=== PATIENT | female | born 1950 | race Caucasian/White ===

== ENCOUNTER 2024-04-10 11:55 | Emergency (ER) | payer MEDICARE, BC, SELFPAY ==
[2024-04-10 11:57] VITALS: BP 125/106
--- NOTE | 2024-04-10 12:42 | ED.GENMED ---
History of Present Illness
General
Chief Complaint: Swelling
Source: patient and spouse
Time Seen by Provider: 04/10/24 12:09
History of Present Illness
History of Present Illness:
73-year-old female presents emergency department complaints of lower extremity edema that started approximately 2 days ago. The edema is symmetrical, and gradual in onset. She denies recent immobilization or trauma. She incidentally states that
she was clinically diagnosed with diverticulitis and just completed a 10-day course of antibiotics because the left lower quadrant was 'sore'. This is improved. She describes somewhat subacute abdominal distention for the last year or so as well
as a chronic cough. She denies dyspnea, fever, chills, nausea, vomiting, anorexia. She did have a loose bowel movement yesterday without black stool or blood. She denies numbness, tingling, focal weakness, chest pain. She is urinating as usual.
Past History
Past History
ED Past Medical History: COPD, Hypothyroidism and Other (Diverticulitis)
ED Past Surgical History: Gynecological (Hysterectomy) and Tonsilectomy
Social History
Tobacco: Former smoker
Alcohol: None
Personal:
Living: with family
Phy Exam
Physical Exam
Physical Exam:
GENERAL: Alert , in no apparent distress
EYE: pupils equal and reactive
NECK: Supple, no significant adenopathy.
ENT: o/p clr, mmm.
CARDIAC: Regular rate and rhythm .
LUNGS: Clear breath sounds bilaterally, no acute respiratory distress, no wheezes/rales/rhonchi
ABDOMEN: Soft, without focal tenderness, no r/g, no cvat, distended
NEUROLOGICAL: Alert and oriented, no focal neuro deficits
SKIN: Warm and dry, skin intact.
MUSCULOSKELETAL: 1+ bilateral lower extremity edema, well perfused.
PSYCH: Normal and appropriate interaction although somewhat anxious.
Scores
Heart Failure Risk
Heart Failure Risk Score: Not Applicable
Course
Orders/Labs/Results
Orders:
Orders
04/10/24 12:42
US Abdomen Complete/Upper Urgent
Comment:
Reason For Exam: distention, pain
04/10/24 13:06
Complete Blood Count/No Diff Urgent
Comprehensive Metabolic Panel Urgent
NT-proBNP Urgent
Troponin I Urgent
04/10/24 13:54
US Periph Venous LOWER Ext Claus Urgent
Comment:
Reason For Exam: edema
Abnormal Lab Results
04/10/24
13:06
RBC 3.76 L 10^6/uL
(4.20-5.40)
Hct 36.5 L %
(37.0-47.0)
MCH 34.3 H pg
(27.0-31.0)
Glucose 110 H mg/dl
(70-99)
04/10/24 13:06
04/10/24 13:06
Vital Signs
Initial and Last Documented VS:
Initial Vital Signs
Temp Pulse Resp BP Pulse Ox
98.4 F 89 19 125/106 93
04/10/24 11:57 04/10/24 11:57 04/10/24 11:57 04/10/24 11:57 04/10/24 11:57
Last Documented Vital Signs
Temp Pulse Resp BP Pulse Ox
98.4 F 84 18 121/86 94
04/10/24 11:57 04/10/24 13:32 04/10/24 13:32 04/10/24 13:32 04/10/24 13:32
*Critical Care Note
Total Time (30-74mins, 75-104mins- exclusive of procedures): Not Applicable
Update Note
Update Note:
Patient presents to the Emergency Department with leg swelling
Number and Complexity of Problems Addressed at the Encounter
� Chronic conditions affecting care:
� Acute Exacerbation and/or Progression of Chronic Illness:
� Differential Diagnosis includes: But not limited to venous insufficiency, heart failure, renal disease, etc. etc.
Amount and/or Complexity of Data to be Reviewed and Analyzed
� I performed an independent evaluation of and my interpretation is:
EKG:
CT:
Xrays:
Laboratory Studies: Unremarkable
Other: Ultrasound bilateral legs and ultrasound of the abdomen generally unremarkable
� Review of other/old records reveals:
� Clinical information was obtained by an independent historian: who is bedside
� Prescriptions/Medications Considered but not given:
� Further testing considered but not performed:
Risk of Complications and/or Morbidity or Mortality of Patient Management
� Social determinants of health affecting care:
� Discussion with other providers (PCP, Hospitalists, Consultants, etc):
� Escalation of care including admission/observation vs risk of discharge considered: 3:35 PM patient is extremely well-appearing, walks about room without difficulty, no chest pain, no shortness of breath. Preliminary workup
here unrevealing regarding etiology of bilateral lower extremity edema which is dependent. Discussed with patient importance of close follow-up, elevation, compression stockings, and reasons return to the emergency department. Patient is on
amlodipine but has been for some time, would be a potential reason for her swelling although unlikely. Patient given copy of ultrasound as well.
ED Attending Note
-
Portions of this chart may have been created with voice recognition software.� Occasional wrong word or��sound alike� substitutions may have occurred due to the inherent limitations of voice recognition software.
Discharge Plan
Departure
Patient Disposition: Home (Routine Discharge)
Date of Disposition: 04/10/24
Time of Disposition: 15:33
Patient with high blood pressure during this ER visit?: Yes
Condition: Good
Discharge Problem:
Edema
Instructions: Dependent Edema (DC), BLOOD PRESSURE
Prescriptions:
No Action
zinc 15 MG tablet
15 mg PO DAILY
famotidine 20 MG tablet
20 mg PO HS
ascorbic acid (vitamin C) [Vitamin C] 500 MG tablet
500 mg PO DAILY
levothyroxine 125 MCG tablet
125 mcg PO DAILY
Bifidobacterium infantis [Align] 4 MG capsule
4 mg PO DAILY
cholecalciferol (vitamin D3) 2,000 UNITS tablet
2,000 units PO DAILY
ccqabofasoe-pvwluszya-mcgohhtc [Trelegy Ellipta] 1 EACH blister with device
1 puff inhalation R DAILY
atorvastatin 40 MG tablet
40 mg PO QPM 30 Days Qty: 30 3RF
clopidogrel 75 MG tablet
75 mg PO DAILY 19 Days Qty: 19 0RF
amlodipine 5 MG tablet
5 mg PO DAILY 30 Days Qty: 30 3RF
aspirin 81 MG tablet,chewable
81 mg PO DAILY 30 Days Qty: 30 3RF
melatonin 5 MG tablet
5 mg PO HSPRN PRN (Reason: sleep) 30 Days Qty: 30 0RF
cyanocobalamin (vitamin B-12) 1,000 MCG tablet
1,000 mcg PO DAILY 30 Days Qty: 30 0RF
Referrals:
Ángel Armstrong DO [Family Provider] - Tomorrow
Activity Restrictions/Additional Instructions:
PLEASE KEEP YOUR FEET ELEVATED IS MUCH POSSIBLE. WEAR COMPRESSION STOCKINGS. SEE YOUR DOCTOR PROMPTLY FOR FURTHER EVALUATION. IF YOU DEVELOP INCREASING SWELLING, REDNESS, FEVER, NUMBNESS, CHEST PAIN, SHORTNESS OF BREATH, OR OTHER WORRISOME
SIGNS, PLEASE RETURN TO THE ER IMMEDIATELY.
Interventions
Interventions:
*Risk Screen - Suicide Last Done: 04/10/24 11:57
*General Assessment Last Done: 04/10/24 11:57
*Neglect/Abuse Screening Last Done: 04/10/24 11:57
ED- Fall Risk Assessment Last Done: 04/10/24 12:04
ED- Cardiac Assessment Last Done: 04/10/24 12:04
ED- Pulmonary Assessment Last Done: 04/10/24 12:04
ED-Skin Assessment Last Done: 04/10/24 12:04
Discharge Date and Time
Print Language: IRISH
[2024-04-10 13:27] LABS: Hematocrit 36.5 % (37.0-47.0); Hemoglobin 12.9 g/dL (12.0-16.0); Mean Corp Hgb Conc. 35.3 g/dL (33.0-37.0); Mean Corpuscular Hgb 34.3 pg (27.0-31.0); Mean Corpuscular Volume 97.1 fL (81.0-99.0); Mean Platelet Volume 10.4 fL (7.4-10.4); Platelet Count 334 10^3/uL (130-400); Red Blood Cell Count 3.76 10^6/uL (4.20-5.40); Red Cell Dist. Width 14.2 % (11.5-14.5); White Blood Cell Count 9.6 10^3/uL (4.8-10.8)
[2024-04-10 13:32] VITALS: BP 121/86
[2024-04-10 13:37] LABS: ALT (SGPT) 17 U/L (0-35); AST (SGOT) 24 U/L (14-36); Albumin 4.2 g/dl (3.5-5.0); Alkaline Phosphatase 100 U/L (38-126); Blood Urea Nitrogen 8 mg/dl (7-17); Calcium 9.3 mg/dl (8.4-10.2); Carbon Dioxide 26 mmol/L (22-30); Chloride 106 mmol/L (98-107); Glucose 110 mg/dl (70-99); Potassium 3.9 mmol/L (3.5-5.1); Sodium 142 mmol/L (135-145); Total Bilirubin 0.6 mg/dl (0.2-1.3); Total Protein 6.5 g/dl (6.3-8.2); eGFR > 60.00
[2024-04-10 13:47] LABS: NT-proBNP 76.4 pg/ml; Troponin I < 0.012 ng/ml
[2024-04-10 15:48] VITALS: BP 142/86
== END 2024-04-10 16:03 | disposition home or self-care (01) ==
LOC: EMR 11:55
PROVIDERS: EMERGENCY PHYSICIAN Emergency Medicine; FAMILY PHYSICIAN Family Medicine
DX: R60.0 Localized edema (principal); R14.0 Abdominal distension (gaseous); R03.0 Elevated blood-pressure reading, without diagnosis of hypertension; J44.9 Chronic obstructive pulmonary disease, unspecified; R05.3 Chronic cough; E03.9 Hypothyroidism, unspecified; K57.92 Diverticulitis of intestine, part unspecified, without perforation or abscess without bleeding; Z87.891 Personal history of nicotine dependence; Z79.899 Other long term (current) drug therapy; Z79.82 Long term (current) use of aspirin; Z88.1 Allergy status to other antibiotic agents
CPT/HCPCS: 99284; 76700; 80053; 83880; 84484; 85027; 93970

== ENCOUNTER 2024-06-19 13:49 | Emergency (ER) | payer MEDICARE, BC, SELFPAY ==
[2024-06-19 14:03] VITALS: BP 101/69
[2024-06-19 15:08] VITALS: BMI 31.6
--- NOTE | 2024-06-19 15:26 | ED.GENMED ---
History of Present Illness
General
Chief Complaint: Rectal Bleeding
Source: patient
Time Seen by Provider: 06/19/24 15:07
History of Present Illness
History of Present Illness:
73-year-old female with past medical history of diverticulitis, COPD, hypothyroidism presenting to the emergency department for evaluation of maroon-colored stool that started last night and again this morning, currently being treated by her primary
care provider for diverticulitis since this past Saturday for which she is taking ciprofloxacin. Patient denies any fevers, chills, rigors, nausea, vomiting. She does note some abdominal discomfort mainly on the left side of her abdomen but
states she is also having some discomfort around the rectal area that moves towards the vaginal area as well. Patient follows with Dr. Cunningham from GI. Denies any history of similar GI bleeding. Denies anticoagulants. Patient notes she does use
occasional NSAIDs but does not use these very frequently. She does have a glass of wine nightly.
Past History
Past History
ED Past Medical History: COPD, Hypothyroidism and Other (Diverticulitis)
ED Past Surgical History: Gynecological (Hysterectomy) and Tonsilectomy
Social History
Tobacco: Former smoker
Alcohol: None
Drug: None
Personal:
Living: with family
Review of Systems
Review of Systems
All Other Systems: ROS reviewed and negative except as documented in HPI and ROS
Phy Exam
Physical Exam
Physical Exam:
GENERAL: Alert , in no apparent distress
EYE: clear conjunctiva
NECK: Supple
ENT: mmm.
CARDIAC: Regular rate and rhythm .
LUNGS: Clear breath sounds bilaterally, no acute respiratory distress, no wheezes/rales/rhonchi
ABDOMEN: Soft, mild ttp LLQ, no r/g, no cvat
RECTAL EXAM: no stool within rectum, no external/internal hemorrhoid appreciated. Exam chapperoned by ED ELYSE Curtis
PELVIC EXAM: no rashes/erythema/discharge
NEUROLOGICAL: Alert and oriented
SKIN: Warm and dry, skin intact.
MUSCULOSKELETAL: well perfused.
PSYCH: Normal and appropriate interaction.
Scores
Heart Failure Risk
Heart Failure Risk Score: Not Applicable
Heart Score for Chest Pain Patients
STEMI patient?: Not applicable
Withdrawal Assessment of Alcohol
Withdrawal Assessment Completed?: Not applicable
Course
Orders/Labs/Results
Orders:
Orders
06/19/24 15:27
Complete Blood Count/With Diff Urgent
Comprehensive Metabolic Panel Urgent
PTT Urgent
Prothrombin Time Urgent
06/19/24 16:05
ABO2 Urgent
BBK Wristband Number:
Associate notified that ABO2 has been ordered: [id number]
Date: 06/19/24
Time: 15:58
Rn Hyperbaric ID: [id number]
Abnormal Lab Results
06/19/24
15:27
RBC 3.78 L 10^6/uL
(4.20-5.40)
Hct 36.0 L %
(37.0-47.0)
MCH 33.3 H pg
(27.0-31.0)
MPV 10.8 H fL
(7.4-10.4)
Absolute Monos (auto) 0.9 H 10^3/uL
(0.1-0.6)
Lymphocytes % 16.6 L %
(20.5-51.1)
Monocytes % 9.5 H %
(1.7-9.3)
BUN 18 H mg/dl
(7-17)
Glucose 119 H mg/dl
(70-99)
06/19/24 15:27
06/19/24 15:27
Vital Signs
Initial and Last Documented VS:
Initial Vital Signs
Temp Pulse Resp BP Pulse Ox
98.3 F 89 16 101/69 93
06/19/24 14:03 06/19/24 14:03 06/19/24 14:03 06/19/24 14:03 06/19/24 14:03
Last Documented Vital Signs
Temp Pulse Resp BP Pulse Ox
98.3 F 79 18 134/67 94
06/19/24 14:03 06/19/24 16:30 06/19/24 16:30 06/19/24 16:00 06/19/24 16:30
Silverware Etcher consulted with Physician
Silverware Etcher consulted with physician?: Yes
Name of Physician Consulted: Kyrie
MDM/Problems Addressed
Differential Diagnosis Includes:
diverticular bleed, UGI bleed, hemorrhoidal bleeding, gastritis, anemia
MDM/Problems Addressed:
73-year-old female presenting to the emergency department for evaluation of 2 separate episodes of burgundy/maroon-colored stool, 1 last night and 1 this morning. Patient with some mild lower abdominal discomfort is currently being treated for
diverticulitis. Patient denies any history of previous GI bleeding. Blood pressure is a little bit soft however she is otherwise hemodynamically stable and well-appearing. Will check labs. Holding on imaging at this point as patient notes that
she has had multiple CAT scans already done of her abdomen for diverticulitis in the past. I do anticipate patient may require admission for observation and trending of her hemoglobin.
Chronic conditions affecting care: Other (Diverticulitis)
*Pulse Oximetry
Patient hypoxic: no
*Critical Care Note
Total Time (30-74mins, 75-104mins- exclusive of procedures): Not Applicable
Data Reviewed
Review of Other/Old Records Reveals: Labs and Records
Source: patient and spouse
Patient Management
Discussion with other providers: Manager Payer
Escalation/DeEscalation of care consider admission/obs:
Patient's labs are all reassuring. She has no leukocytosis, hemoglobin of 12.6 and chemistry is otherwise unremarkable. Patient without any further bleeding while in the ER. Discussed risk versus benefit of inpatient admission and patient
ultimately feels comfortable being discharged home with close outpatient follow-up. I messaged GI to help expedite an outpatient visit. Will start patient on PPI and also provided with Anusol suppository for possible hemorrhoidal bleeding.
Advised on cessation of any EtOH and recommended bland diet. Patient and spouse are in agreement. Both are aware of the return precautions to the ER. Stable for discharge home
ED Attending Note
-
Portions of this chart may have been created with voice recognition software.� Occasional wrong word or��sound alike� substitutions may have occurred due to the inherent limitations of voice recognition software.
Discharge Plan
Departure
Patient Disposition: Home (Routine Discharge)
Date of Disposition: 06/19/24
Time of Disposition: 16:24
Patient with high blood pressure during this ER visit?: No
Discharge Problem:
Rectal bleeding
Instructions: Gastrointestinal Bleeding (DC)
Prescriptions:
New
omeprazole 40 mg capsule,delayed release(DR/EC)
40 mg PO DAILY Qty: 30 0RF
hydrocortisone acetate [Anusol-HC] 25 mg suppository
25 mg OR BID Qty: 24 0RF
No Action
losartan 50 mg Tablet
50 mg PO DAILY
levothyroxine 137 mcg Tablet
137 mcg PO DAILY
metronidazole 500 mg Tablet
500 mg PO TID
ciprofloxacin HCl 500 mg Tablet
500 mg PO BID
ibuprofen [Advil] 200 mg Tablet
400 mg PO Q8HPRN PRN (Reason: mild pain)
simethicone [Gas-X] 80 mg Tablet,Chewable
80 mg PO DAILYPRN PRN (Reason: gas)
ProAir RespiClick 90 mcg/actuation Aerosol Powdr Breath Activated
2 inh INHALATION R Q6HPRN PRN (Reason: sob)
Trelegy Ellipta 100-62.5-25 mcg Blister With Device
1 inh INHALATION R DAILY
Referrals:
Ángel Armstrong DO [Family Provider] -
Christiane Cunningham MD [Active] -
Interventions
Interventions:
*Risk Screen - Suicide Last Done: 06/19/24 14:03
*General Assessment Last Done: 06/19/24 14:03
*Neglect/Abuse Screening Last Done: 06/19/24 14:03
ED- Fall Risk Assessment Last Done: 06/19/24 14:20
*ED COVID-19 Vaccine History Last Done: 06/19/24 15:09
*Nursing Disposition Last Done: 06/19/24 16:46
QR-Eyhnnl-Oxfdneztxs Assessment Last Done: 06/19/24 14:35
ED- Cardiac Assessment Last Done: 06/19/24 14:35
ED- Pulmonary Assessment Last Done: 06/19/24 14:35
Discharge Date and Time
Discharge Date/Time: 06/19/24 16:47
Print Language: KOREAN
[2024-06-19 15:28] VITALS: BP 142/61
[2024-06-19 15:42] LABS: % Basophils 0.7 % (0-2); % Eosinophils 2.1 % (0-6); % Immature Granulocytes 0.3 % (0-0.5); % Lymphocytes 16.6 % (20.5-51.1); % Monocytes 9.5 % (1.7-9.3); % Neutrophils 70.8 % (42.2-75.2); Absolute Basophils 0.1 10^3/uL (0-0.2); Absolute Eosinophils 0.2 10^3/uL (0-0.7); Absolute Lymphocytes 1.5 10^3/uL (1.2-3.4); Absolute Monocytes 0.9 10^3/uL (0.1-0.6); Absolute Neutrophils 6.4 10^3/uL (1.4-6.5); Hemoglobin 12.6 g/dL (12.0-16.0); Mean Corpuscular Hgb 33.3 pg (27.0-31.0); Mean Corpuscular Volume 95.2 fL (81.0-99.0); Mean Platelet Volume 10.8 fL (7.4-10.4); Nucleated Red Blood Cells % 0 %; Platelet Count 289 10^3/uL (130-400); Red Blood Cell Count 3.78 10^6/uL (4.20-5.40); Red Cell Dist. Width 13.3 % (11.5-14.5)
[2024-06-19 15:45] LABS: INR 1.06; PT 13.6 Sec (11.4-14.6)
[2024-06-19 15:46] LABS: APTT 29.7 Sec (23.4-35.0)
[2024-06-19 15:53] LABS: ALT (SGPT) 17 U/L (0-35); AST (SGOT) 23 U/L (14-36); Albumin 4.2 g/dl (3.5-5.0); Alkaline Phosphatase 83 U/L (38-126); Blood Urea Nitrogen 18 mg/dl (7-17); Calcium 9.4 mg/dl (8.4-10.2); Carbon Dioxide 25 mmol/L (22-30); Chloride 105 mmol/L (98-107); Estimated Creatinine Clearance 79 ml/min; Glucose 119 mg/dl (70-99); Sodium 143 mmol/L (135-145); Total Bilirubin 0.4 mg/dl (0.2-1.3); Total Protein 6.8 g/dl (6.3-8.2); eGFR > 60.00
[2024-06-19 16:00] VITALS: BP 134/67
== END 2024-06-19 16:47 | disposition home or self-care (01) ==
LOC: EMR 13:49
PROVIDERS: Physician Assistant Medical; EMERGENCY PHYSICIAN Student in an Organized Health Care Education/Training Program; FAMILY PHYSICIAN Family Medicine
DX: K62.5 Hemorrhage of anus and rectum (principal); J44.9 Chronic obstructive pulmonary disease, unspecified; E03.9 Hypothyroidism, unspecified; Z87.891 Personal history of nicotine dependence; Z90.710 Acquired absence of both cervix and uterus
CPT/HCPCS: 99283; 80053; 85025; 85610; 85730; 86900; 86901

== ENCOUNTER → 2024-08-28 14:32 | Outpatient (REF) | payer MEDICARE, BC, SELFPAY ==
[2024-08-28 15:47] LABS: % Basophils 0.6 % (0-2); % Immature Granulocytes 0.6 % (0-0.5); % Lymphocytes 20.6 % (20.5-51.1); % Monocytes 10.7 % (1.7-9.3); % Neutrophils 65.5 % (42.2-75.2); Absolute Basophils 0.1 10^3/uL (0-0.2); Absolute Eosinophils 0.2 10^3/uL (0-0.7); Absolute Immature Granulocytes 0.1 10^3/uL (0-0.05); Absolute Lymphocytes 2.1 10^3/uL (1.2-3.4); Absolute Monocytes 1.1 10^3/uL (0.1-0.6); Absolute Neutrophils 6.7 10^3/uL (1.4-6.5); Mean Corp Hgb Conc. 33.3 g/dL (33.0-37.0); Mean Corpuscular Hgb 32.4 pg (27.0-31.0); Mean Corpuscular Volume 97.3 fL (81.0-99.0); Mean Platelet Volume 9.6 fL (7.4-10.4); Nucleated Red Blood Cells % 0 %; Platelet Count 498 10^3/uL (130-400); Red Blood Cell Count 3.39 10^6/uL (4.20-5.40); Red Cell Dist. Width 14.8 % (11.5-14.5); White Blood Cell Count 10.2 10^3/uL (4.8-10.8)
[2024-08-28 16:11] LABS: ALT (SGPT) 20 U/L (0-35); AST (SGOT) 22 U/L (14-36); Albumin 3.9 g/dl (3.5-5.0); Alkaline Phosphatase 105 U/L (38-126); Blood Urea Nitrogen 15 mg/dl (7-17); Carbon Dioxide 31 mmol/L (22-30); Chloride 103 mmol/L (98-107); Glucose 85 mg/dl (70-99); Potassium 4.4 mmol/L (3.5-5.1); Sodium 140 mmol/L (135-145); Total Bilirubin 0.4 mg/dl (0.2-1.3); Total Protein 6.5 g/dl (6.3-8.2); eGFR > 60.00
== END ==
LOC: REG 14:32
PROVIDERS: ATTENDING PHYSICIAN Surgery
DX: K62.5 Hemorrhage of anus and rectum (principal)
CPT/HCPCS: 36415; 80053; 85025

== ENCOUNTER 2024-09-16 06:19 | Day surgery (SDC) | payer MEDICARE, BC, SELFPAY | END 2024-09-16 11:46 | disposition home or self-care (01) | LOC: GI 06:19 | PROVIDERS: ATTENDING PHYSICIAN Surgery | DX: Z12.11 Encounter for screening for malignant neoplasm of colon (principal); K62.5 Hemorrhage of anus and rectum; K57.30 Diverticulosis of large intestine without perforation or abscess without bleeding; K63.89 Other specified diseases of intestine; D12.3 Benign neoplasm of transverse colon; D12.2 Benign neoplasm of ascending colon; Z86.0100 Personal history of colon polyps, unspecified | CPT/HCPCS: 45385; 45380; 88305 ==

== ENCOUNTER 2025-03-22 10:28 | Emergency (ER) | payer MEDICARE, BC, SELFPAY ==
[2025-03-22] VITALS (8 sets, daily range): BP systolic 133–167; BP diastolic 62–81; BMI 31.9
[2025-03-22] MEDS: ATIVAN 1 MG PO (11:49)
[2025-03-22] MEDS: DUONEB 3 ML INH (11:53)
--- NOTE | 2025-03-22 12:01 | ED.GENMED ---
History of Present Illness
General
Chief Complaint: Breathing Problem
Time Seen by Provider: 03/22/25 11:07
History of Present Illness
History of Present Illness:
saee MDM
Past History
Past History
ED Past Medical History: COPD, Hypothyroidism and Other (Diverticulitis)
ED Past Surgical History: Gynecological (Hysterectomy) and Tonsilectomy
Social History
Tobacco: Former smoker
Alcohol: None
Drug: None
Personal:
Living: with family
Phy Exam
Physical Exam
Physical Exam:
GENERAL: Alert , in no apparent distress moderately anxious
EYE: pupils equal and reactive
NECK: Supple
ENT: o/p clr, mmm.
CARDIAC: Regular rate and rhythm .
LUNGS: Diminished throughout, no acute respiratory distress, no wheezes/rales/rhonchi
ABDOMEN: Soft, without focal tenderness, no r/g, no cvat, normal bowel sounds
NEUROLOGICAL: Alert and oriented, no focal neuro deficits
SKIN: Warm and dry, skin intact.
Patient has erythematous plaques with a few satellite lesions under both breast folds as well as her pannus and in her inguinal region as well as the right side of her neck
MUSCULOSKELETAL: No edema, well perfused. neg mykel's sign
PSYCH: Normal and appropriate interaction.
Scores
Heart Failure Risk
Heart Failure Risk Score: Not Applicable
Course
Orders/Labs/Results
Orders:
Orders
03/22/25 10:32
Electrocardiogram (*1) Urgent
Reason for Study: Shortness of Breath
EKG- Treatment ONCE
03/22/25 11:33
Ipratropium/Albuterol Sulfate [Duoneb] 3 ml INH R NOW ONE
Lorazepam [Ativan] 1 mg PO NOW STA
03/22/25 11:34
CT Chest PE Study Urgent
Comment:
Reason For Exam: sob, feels something obstructing breathing;
03/22/25 12:00
Complete Blood Count/With Diff Urgent
Comprehensive Metabolic Panel Urgent
NT-proBNP Urgent
TSH Reflex To Free T4 Urgent
Troponin I Urgent
03/22/25 14:22
Neck Soft Tissue [CR Soft Tissue Neck ] Urgent
Comment:
Reason For Exam: sob
03/22/25 14:28
Prednisone [Deltasone] 50 mg PO NOW STA
03/22/25 14:36
Ipratropium/Albuterol Sulfate [Duoneb] 3 ml .ROUTE .STK-MED ONE
Abnormal Lab Results
03/22/25
12:00
RBC 3.68 L 10^6/uL
(4.20-5.40)
Hct 36.3 L %
(37.0-47.0)
MCH 33.4 H pg
(27.0-31.0)
MPV 10.7 H fL
(7.4-10.4)
Absolute Neuts (auto) 7.4 H 10^3/uL
(1.4-6.5)
Absolute Monos (auto) 0.9 H 10^3/uL
(0.1-0.6)
Lymphocytes % 16.3 L %
(20.5-51.1)
Chloride 108 H mmol/L
(98-107)
Glucose 100 H mg/dl
(70-99)
03/22/25 12:00
03/22/25 12:00
Vital Signs
Initial and Last Documented VS:
Initial Vital Signs
Temp Pulse Resp BP Pulse Ox
36.9 C 95 16 167/81 96
03/22/25 10:29 03/22/25 10:29 03/22/25 10:29 03/22/25 10:29 03/22/25 10:29
Last Documented Vital Signs
Temp Pulse Resp BP Pulse Ox
36.9 C 101 27 144/75 95
03/22/25 10:29 03/22/25 15:30 03/22/25 15:30 03/22/25 15:00 03/22/25 15:30
MDM/Problems Addressed
Differential Diagnosis Includes:
see MDM
MDM/Problems Addressed:
Note:
CHIEF COMPLAINT(S)
Difficulty breathing with a sensation of throat obstruction.
HISTORY OF PRESENT ILLNESS
The patient is a female with a history of Chronic Obstructive Pulmonary Disease (COPD), o2 use 3L at night only typically, who presents with difficulty breathing and a sensation of fullness in the throat. She typically uses supplemental oxygen at
three liters per minute at night, but her symptoms began approximately one week ago. She describes her breathing difficulty as a sensation of something obstructing her throat, despite not having difficulty swallowing food or liquids. The patient
denies pain when breathing but experiences intermittent chest tightness.
Her current symptoms may be related to adjustments in her Levothyroxine dosage, which was altered by her physician after blood work indicated her thyroid levels were too high. These changes occurred after a recent visit to a family doctor, who
adjusted the medication from 125 micrograms to 112 micrograms. The patient reports a non-productive cough with minimal mucus expectoration, intermittent shortness of breath, and chest pressure, particularly when exerting such as climbing stairs. She
notes that these episodes of dyspnea are accompanied by a decline in usual activities due to decreased oxygen saturation while ambulating. Despite these symptoms, there has been no fever, and she experiences chills at night.
The patient has tried using Pro Air and has a nebulizer at home but has only used the former, finding it ineffective. She denies prior history of heart problems, congestive heart failure, or previous blood clots. She had a broken toe that was
rebroken recently.
The patient also suffers from contact dermatitis, currently presenting with a significant rash that looks consistent with a fungal infection. This rash has become noticeable over the past month. Additionally, she experiences eye irritation and
allergies, with excessive tearing but no pain.
PAST MEDICAL AND SURGICAL HISTORY
Chronic Obstructive Pulmonary Disease
Hypothyroidism
History of broken toe, recently rebroken
SOCIAL DETERMINANTS AFFECTING HEALTH
The patient is a former smoker. She denies current smoking or the use of hormone replacement therapy.
MEDICATIONS
Levothyroxine 112 micrograms (recently adjusted).
REVIEW OF SYSTEMS
- Respiratory: Difficulty breathing, feeling of obstruction in throat, intermittent chest tightness, worsening dyspnea on exertion.
- Dermatological: Contact dermatitis with significant rash under breasts and arms appearing fungal in nature.
- Eyes: Excessive tearing noted, possibly allergic.
PHYSICAL EXAM
- Respiratory: The patient is not wheezing, breath sounds appear restricted.
- Dermatological: Rash consistent with yeast infection noted under breast and arms.
Nursing notes reviewed and vital signs reviewed.
PROBLEM LIST
Acute:
- Difficulty breathing with throat obstruction sensation
- Possible fungal infection presenting as contact dermatitis
- Chest pressure and dyspnea on exertion
Chronic:
- Chronic Obstructive Pulmonary Disease
- Hypothyroidism
PLAN
- Initiate a cardiac workup to rule out heart-related issues as the potential cause of symptoms.
- Perform imaging of the chest, likely a CT scan, despite the patient�s anxiety about the procedure. Consider providing anti-anxiety medication beforehand.
- Conduct blood work to assess for possible COPD exacerbation or other underlying causes.
- Provide nebulized breathing treatment during the visit.
- Prescribe antifungal cream for the rash assumed to be a fungal infection.
- Consider GI evaluation if respiratory causes are ruled out for symptoms suggestive of esophageal or GERD involvement.
DIFFERENTIAL DIAGNOSIS
The Differential Diagnosis includes, in no particular order and is not limited to:
- COPD exacerbation
- Hypothyroidism effect
- Fungal esophagitis
- Congestive heart failure
- Pulmonary embolism
- Lung cancer
- Pneumonia
- Laryngeal obstruction
- Anxiety-related respiratory distress
- GERD
74 y/o F
h/o chronic COPD
has o2 bu tonly at night
has been waking up feeling more air hunger in the morning the past week
she uses her portable tank and feelsb gavino
but then has noticed exertional dyspnea getting worse, slight cough, no wheezing, no cp, no fever
no h/o CAD
pt feels better on o2
tried inhaler without relief
[facility] tto PCP last week and her walking pulse ox was 88%
she is here for not feeling better
as well as wondering if there is something in her chest or throat that is preventnig her from breathing
she can swallow, has no hoarseness, painful swallowing, inability to swalow, dysphagia, vomiting
she doesn't feel it is GI
2nd comlaint is a chronic rash in her folds, under breasts, groin, pannus
she has tried several steroid creams without relief
on exam pt seems moderately anxious
she has normal pulse ox at rest off o2
very diminished BS without wheezing
no significant edema
no murmru papreciated
w/u here with nonishcmeic EKG, neg trop, neg bnp
sounds much better moving more air an dis more comforrtable after neb/steroids
her ct scan was neg for mass/PE'
she had neck xr soft tissue indep reviewed, neg
walking pulse ox off o2 is 77%
on o2 is 95%
she was given choice to be admitted; bu tshe declined; she has o2 at home and wants to try home steroids, nebs, z peyman
treating sxs as copd exac
return precuations
*Pulse Oximetry
SaO2: 96
Nasal Cannula flow liters per minute: 3
Patient hypoxic: yes (on room air walking pulse ox but otherwise at rest 95% room air)
*Critical Care Note
Total Time (30-74mins, 75-104mins- exclusive of procedures): Not Applicable
ED Attending Note
-
Portions of this chart may have been created with voice recognition software.� Occasional wrong word or��sound alike� substitutions may have occurred due to the inherent limitations of voice recognition software.
Discharge Plan
Departure
Patient Disposition: Home (Routine Discharge)
Date of Disposition: 03/22/25
Time of Disposition: 15:17
Patient with high blood pressure during this ER visit?: No
Covid-19: Not Applicable
Discharge Problem:
COPD (chronic obstructive pulmonary disease), Candidal skin infection
Instructions: Exacerbation of COPD (DC), Intertrigo (DC)
Prescriptions:
New
prednisone 50 mg tablet
50 mg PO DAILY Qty: 4 0RF
fluconazole 150 mg tablet
150 mg PO ONCE Qty: 1 0RF
nystatin 100,000 unit/gram powder
1 applic topical BID 14 Days Qty: 30 0RF
azithromycin [Zithromax Z-Peyman] 250 mg tablet
250 mg PO DAILY 6 Days Qty: 6 0RF
No Action
losartan 50 mg Tablet
50 mg PO DAILY
levothyroxine 137 mcg Tablet
137 mcg PO DAILY
metronidazole 500 mg Tablet
500 mg PO TID
ciprofloxacin HCl 500 mg Tablet
500 mg PO BID
ibuprofen [Advil] 200 mg Tablet
400 mg PO Q8HPRN PRN (Reason: mild pain)
simethicone [Gas-X] 80 mg Tablet,Chewable
80 mg PO DAILYPRN PRN (Reason: gas)
ProAir RespiClick 90 mcg/actuation Aerosol Powdr Breath Activated
2 inh INHALATION R Q6HPRN PRN (Reason: sob)
Trelegy Ellipta 100-62.5-25 mcg Blister With Device
1 inh INHALATION R DAILY
omeprazole 40 mg capsule,delayed release(DR/EC)
40 mg PO DAILY Qty: 30 0RF
hydrocortisone acetate [Anusol-HC] 25 mg suppository
25 mg NM BID Qty: 24 0RF
Referrals:
Ángel Armstrong DO [Family Provider, Family Practice]
Activity Restrictions/Additional Instructions:
I think your shortness of breath is from your COPD. You can use oxygen 1 L as needed during the day if you are feeling symptomatic. For now we will try prednisone once a day for the next 4 days starting tomorrow, we gave you the first dose here.
You should also use your nebulizer treatment every 4-6 hours and make sure to rinse out your mouth afterwards. You can take the Z-Peyman which is for to treat the bronchitis, take as directed. You can start that today. Your CAT scan showed
emphysematous changes but no obvious pneumonia or masses in your chest. You should follow-up with your lung specialist in the next week or two
Also to treat the fungal skin infection that you have you should apply nystatin powder in the folds where the rashes twice a day for the next 7 to 14 days.
If this does not improve after a week you can try a dose of Diflucan 150 mg once
If you start having trouble swallowing, hoarse voice, painful eating or inability to eat I would consider that you could have thrush/esophageal candidiasis and need an endoscopy. You may need further testing if the symptoms continues. Return to
the ER for worsening exertional chest discomfort or shortness of breath or any concerns.
Interventions
Interventions:
*Risk Screen - Suicide Last Done: 03/22/25 10:32
*Neglect/Abuse Screening Last Done: 03/22/25 10:32
*Nursing Disposition Last Done: 03/22/25 15:53
ED- Cardiac Assessment Last Done: 03/22/25 12:38
ED- Pulmonary Assessment Last Done: 03/22/25 12:38
Discharge Date and Time
Discharge Date/Time: 03/22/25 15:58
Print Language: YEMENI
[2025-03-22 12:12] LABS: Hematocrit 36.3 % (37.0-47.0); Hemoglobin 12.3 g/dL (12.0-16.0); Mean Corp Hgb Conc. 33.9 g/dL (33.0-37.0); Mean Corpuscular Volume 98.6 fL (81.0-99.0); Nucleated Red Blood Cells % 0 %; Platelet Count 309 10^3/uL (130-400); Red Cell Dist. Width 13.7 % (11.5-14.5)
[2025-03-22 12:28] LABS: ALT (SGPT) 13 U/L (0-35); AST (SGOT) 17 U/L (14-36); Albumin 4.3 g/dl (3.5-5.0); Alkaline Phosphatase 108 U/L (38-126); Blood Urea Nitrogen 12 mg/dl (7-17); Calcium 9.6 mg/dl (8.4-10.2); Carbon Dioxide 25 mmol/L (22-30); Chloride 108 mmol/L (98-107); Glucose 100 mg/dl (70-99); Potassium 4.1 mmol/L (3.5-5.1); Sodium 140 mmol/L (135-145); Total Protein 6.9 g/dl (6.3-8.2); eGFR > 60.00
[2025-03-22 12:39] LABS: Troponin I < 0.012 ng/ml
[2025-03-22] MEDS: DELTASONE 50 MG PO (14:47)
== END 2025-03-22 15:58 | disposition home or self-care (01) ==
LOC: EMR 10:28
PROVIDERS: Physician Assistant; EMERGENCY PHYSICIAN Student in an Organized Health Care Education/Training Program; FAMILY PHYSICIAN Family Medicine
DX: J44.9 Chronic obstructive pulmonary disease, unspecified (principal); B37.2 Candidiasis of skin and nail; R07.89 Other chest pain; E03.9 Hypothyroidism, unspecified; Z87.891 Personal history of nicotine dependence; Z90.710 Acquired absence of both cervix and uterus; Z99.81 Dependence on supplemental oxygen
CPT/HCPCS: 99285; 94640; 70360; 71275; 80053; 83880; 84443; 84484; 85025; 93005; Q9967

== ENCOUNTER 2025-04-28 11:07 | Emergency (ER) | payer MEDICARE, BC, SELFPAY ==
[2025-04-28 11:16] VITALS: BP 168/82
--- NOTE | 2025-04-28 11:26 | ED.GENMED ---
History of Present Illness
General
Chief Complaint: Abdominal Symptoms
Time Seen by Provider: 04/28/25 11:26
History of Present Illness
History of Present Illness:
FOCUSED PAST MEDICAL HISTORY
- Diverticular disease
REVIEW OF OLD RECORDS
- I reviewed records, the patient was seen in the emergency department with COPD exacerbation 1 month ago. The patient had a colonoscopy with Dr. Chopra that showed scattered diverticula and polyps removed at that time. The patient was also
diagnosed with a TIA in 2021 and at that time there was concern for moderate cognitive impairment 'possibly dementia'.
Note:
CHIEF COMPLAINT(S)
Breathing difficulties and gastrointestinal discomfort.
HISTORY OF PRESENT ILLNESS
The patient is a 74-year-old female with a history of chronic obstructive pulmonary disease (COPD) and diverticular disease in the colon. She presented to the emergency department due to a sensation of something being stuck in her throat and
gastrointestinal discomfort. This discomfort is primarily located in the left lower quadrant of the abdomen and sometimes manifests in the upper abdomen as well. The patient reports no current abdominal pain but describes experiencing discomfort,
particularly noting a 'mud' appearance in the stool and the presence of blood. She was advised by her primary care physician that acid reflux might be a contributing factor. The patient experiences shortness of breath but does not attribute it
exclusively to her COPD and uses supplemental oxygen minimally during the day. She currently feels 'gooey' sensations when she wakes up. The patient has not previously undergone an endoscopy, and her primary care providers office suggested seeking
emergency evaluation due to the delay in scheduling a consultation.
The patient also reported decreased breath sounds, which were consistent with her diagnosis of COPD. A physical exam revealed decreased breath sounds without wheezing. She opted not to receive a breathing treatment at this time.
PHYSICAL EXAM
General: Alert, no acute distress.
Skin: Warm, dry.
Head: Normocephalic, atraumatic.
Neck: Supple, trachea midline.
Eyes Ears, Nose, Mouth, and Throat: Oral mucosa moist.
Cardiovascular: Normal peripheral perfusion, No edema.
Respiratory: Decreased breath sounds, consistent with COPD, but no wheezing noted.
Gastrointestinal: Abdomen nondistended; discomfort noted on palpation of the left side.
Back: Normal range of motion, Normal alignment.
Musculoskeletal: Normal range of motion, normal strength.
Neurological: Alert and oriented to person, place, time, and situation, No focal neurological deficit observed.
Psychiatric: Cooperative, appropriate mood & affect.
PROBLEM LIST
Acute Problems:
- Sensation of foreign body in throat
- Gastrointestinal discomfort
- Shortness of breath
Chronic Problems:
- Chronic obstructive pulmonary disease (COPD)
- Diverticular disease
PLAN
1. Perform a CT scan of the abdomen and potentially extend the imaging to include the chest to assess for any upper gastrointestinal or thoracic issues.
2. Evaluate the patients reports of blood in the stool and gastrointestinal discomfort through diagnostic imaging and potential laboratory tests.
3. Monitor the patients breathing status and provide a breathing treatment if needed, although the patient declined at this time.
DIFFERENTIAL DIAGNOSIS
The Differential Diagnosis includes, in no particular order and is not limited to:
1. Esophageal obstruction
2. Diverticulitis
3. Gastroesophageal reflux disease (GERD)
4. Peptic ulcer disease
5. Gastritis
6. Colorectal cancer
7. Gallbladder disease
8. Pulmonary embolism
9. Pneumonia
10. Lung cancer
RADIOLOGY
- CT imaging of the chest, abdomen, pelvis obtained
EKG
- Sinus 76, left axis deviation, nonspecific ST abnormality, no change from 03/22/2025
LABS
- Chemistries unremarkable, white count 10.6, hemoglobin 11.6
UPDATE
-SUMMARY OF ENCOUNTER
The patient, a 74-year-old female with a history of COPD and diverticular disease, presented with breathing difficulties and gastrointestinal discomfort. She reported a sensation of something being stuck in her throat and had concerns about the
appearance of her stool, including episodes of blood. After assessment and examination, including reviewing imaging and blood work, no signs of significant infection or bowel obstruction were observed. A CT scan did not indicate diverticulitis or
other acute findings, and the patients white blood cell count was normal. The discussion centered around managing her symptoms potentially related to acid reflux and mucus accumulation. There was consideration for antibiotic treatment, but no
evidence strongly supported its use at this time.
ASSESSMENT
The patient is experiencing gastrointestinal discomfort likely related to gastroesophageal reflux disease (GERD) and mucus-related respiratory issues. There is no acute indication for intravenous antibiotics or emergency intervention.
PLAN
1. Continue with current proton pump inhibitor treatment as prescribed and complete the course.
2. Consider resuming azithromycin for potential bacterial infection, if symptoms suggestive of this develop.
3. Patient should manage symptoms with available oxygen if necessary, particularly during periods of increased respiratory discomfort.
4. Schedule follow-up with a lung specialist for further evaluation and continued monitoring of respiratory symptoms.
PATIENT EDUCATION AND COUNSELING
The patient was advised about the differences between diverticulosis and diverticulitis, and the potential role of GERD in her symptoms. Information was provided on the use of acid-reducing medication to help alleviate symptoms of gastrointestinal
discomfort.
FOLLOW-UP INSTRUCTIONS
Please follow up with a lung specialist within a month for further evaluation of respiratory symptoms. Continue using supplemental oxygen as needed and monitor for any new or worsening symptoms that may require attention.
MEDICATION RECONCILIATION
1. Continue the proton pump inhibitor for GERD management.
2. Consider resuming azithromycin if symptoms suggest a bacterial infection, pending further evaluation.
MEDICAL DECISION MAKING
- Number and Complexity of Problems Addressed: Chronic conditions affecting care include COPD and diverticular disease. Differential diagnosis includes esophageal obstruction, diverticulitis, gastroesophageal reflux disease (GERD), peptic ulcer
disease, gastritis, colorectal cancer, gallbladder disease, pulmonary embolism, pneumonia, lung cancer.
- Data:
Category 1: Reviewed CT scan results and confirmed no signs of acute diverticulitis or bowel obstruction.
Category 2: None applicable.
Category 3: Discussion facilitated with specialists concerning the consideration of azithromycin for symptomatic relief if necessary.
-Risk:
Consideration of Admission/Observation: Escalation of care including admission/observation was considered given the complexity and risk of the patients presenting complaint, exam findings, and their underlying comorbidities. However, ultimately it
was determined the patient is safe for outpatient management with close follow-up. Reasoning: Work-up reassuring, does not reveal any acute life/organ threatening processes, patients symptoms well controlled upon reevaluation, reexamination is
reassuring, vitals are stable, patient agreeable with discharge, reliable for follow-up.
DIAGNOSIS
1. Gastroesophageal reflux disease (GERD) - K21.9
2. Mucus accumulation in respiratory tracts due to COPD - J44.9
3. Diverticulosis of the colon - K57.30
Past History
Past History
ED Past Medical History: COPD, Hypothyroidism and Other (Diverticulitis)
ED Past Surgical History: Gynecological (Hysterectomy) and Tonsilectomy
Social History
Tobacco: Former smoker
Alcohol: None
Drug: None
Personal:
Living: with family
Phy Exam
Physical Exam
Physical Exam:
See HPI
Course
Orders/Labs/Results
Orders:
Orders
04/28/25 11:37
Chest/Abd/Pelvis w Contrast CT [CT Chest/abd/pel W Iv Cont] Urgent
Comment:
Reason For Exam: sensation of chest discomfort, L side abd pain; di
04/28/25 11:38
0.9% Sodium Chloride 500 ml [Nss] 500 ml IV BOLUS
04/28/25 11:40
Electrocardiogram (*1) Urgent
Reason for Study: Chest Pain
EKG- Treatment ONCE
04/28/25 11:42
Famotidine [Pepcid] 20 mg IV NOW STA
04/28/25 12:17
Complete Blood Count/With Diff Urgent
Comprehensive Metabolic Panel Urgent
04/28/25 13:50
diazePAM [Valium Injection] 5 mg IV NOW STA
Abnormal Lab Results
04/28/25
12:17
RBC 3.53 L 10^6/uL
(4.20-5.40)
Hgb 11.6 L g/dL
(12.0-16.0)
Hct 34.8 L %
(37.0-47.0)
MCH 32.9 H pg
(27.0-31.0)
MPV 10.8 H fL
(7.4-10.4)
Absolute Neuts (auto) 7.8 H 10^3/uL
(1.4-6.5)
Absolute Monos (auto) 0.8 H 10^3/uL
(0.1-0.6)
Lymphocytes % 15.2 L %
(20.5-51.1)
Chloride 109 H mmol/L
(98-107)
04/28/25 12:17
04/28/25 12:17
Vital Signs
Initial and Last Documented VS:
Initial Vital Signs
Temp Pulse BP Pulse Ox
36.8 C 85 168/82 95
04/28/25 11:16 04/28/25 11:16 04/28/25 11:16 04/28/25 11:16
Last Documented Vital Signs
Temp Pulse Resp BP Pulse Ox
36.8 C 84 18 144/92 96
04/28/25 11:16 04/28/25 14:07 04/28/25 14:07 04/28/25 14:07 04/28/25 14:07
*Pulse Oximetry
SaO2: 95
Oxygen Mode of Delivery: Room air
Patient hypoxic: no
*Critical Care Note
Total Time (30-74mins, 75-104mins- exclusive of procedures): Not Applicable
ED Attending Note
-
Portions of this chart may have been created with voice recognition software.� Occasional wrong word or��sound alike� substitutions may have occurred due to the inherent limitations of voice recognition software.
Discharge Plan
Departure
Prescriptions:
No Action
losartan 50 mg Tablet
50 mg PO DAILY
levothyroxine 137 mcg Tablet
137 mcg PO DAILY
metronidazole 500 mg Tablet
500 mg PO TID
ciprofloxacin HCl 500 mg Tablet
500 mg PO BID
ibuprofen [Advil] 200 mg Tablet
400 mg PO Q8HPRN PRN (Reason: mild pain)
simethicone [Gas-X] 80 mg Tablet,Chewable
80 mg PO DAILYPRN PRN (Reason: gas)
ProAir RespiClick 90 mcg/actuation Aerosol Powdr Breath Activated
2 inh INHALATION R Q6HPRN PRN (Reason: sob)
Trelegy Ellipta 100-62.5-25 mcg Blister With Device
1 inh INHALATION R DAILY
omeprazole 40 mg capsule,delayed release(DR/EC)
40 mg PO DAILY Qty: 30 0RF
hydrocortisone acetate [Anusol-HC] 25 mg suppository
25 mg [place] BID Qty: 24 0RF
prednisone 50 mg tablet
50 mg PO DAILY Qty: 4 0RF
fluconazole 150 mg tablet
150 mg PO ONCE Qty: 1 0RF
nystatin 100,000 unit/gram powder
1 applic topical BID 14 Days Qty: 30 0RF
azithromycin [Zithromax Z-Peyman] 250 mg tablet
250 mg PO DAILY 6 Days Qty: 6 0RF
Referrals:
Ángel Armstrong DO [Family Provider, Family Practice]
Interventions
Interventions:
*Risk Screen - Suicide Last Done: 04/28/25 12:24
*General Assessment Last Done: 04/28/25 12:22
*Neglect/Abuse Screening Last Done: 04/28/25 12:24
*ED- Fall Risk Assessment Last Done: 04/28/25 12:22
*ED COVID-19 Vaccine History Last Done: 04/28/25 12:22
HZ-Tpaxwm-Mgzngfcdrl Assessment Last Done: 04/28/25 12:22
Discharge Date and Time
Print Language: MALIAN
[2025-04-28] MEDS: PEPCID 20 MG IV (12:17)
[2025-04-28] MEDS: NSS 500 IV (12:17)
[2025-04-28 12:22] VITALS: BMI 30.1
[2025-04-28 12:39] LABS: Hematocrit 34.8 % (37.0-47.0); Hemoglobin 11.6 g/dL (12.0-16.0); Mean Corp Hgb Conc. 33.3 g/dL (33.0-37.0); Mean Corpuscular Volume 98.6 fL (81.0-99.0); Nucleated Red Blood Cells % 0 %; Platelet Count 297 10^3/uL (130-400); Red Cell Dist. Width 13.5 % (11.5-14.5)
[2025-04-28 13:02] LABS: ALT (SGPT) 15 U/L (0-35); AST (SGOT) 19 U/L (14-36); Albumin 4.0 g/dl (3.5-5.0); Alkaline Phosphatase 107 U/L (38-126); Blood Urea Nitrogen 12 mg/dl (7-17); Calcium 9.7 mg/dl (8.4-10.2); Carbon Dioxide 28 mmol/L (22-30); Chloride 109 mmol/L (98-107); Estimated Creatinine Clearance 78 ml/min; Glucose 94 mg/dl (70-99); Potassium 4.3 mmol/L (3.5-5.1); Sodium 142 mmol/L (135-145); Total Protein 6.7 g/dl (6.3-8.2); eGFR > 60.00
[2025-04-28] MEDS: VALIUM INJECTION 5 MG IV (14:05)
[2025-04-28 14:07] VITALS: BP 144/92
[2025-04-28 15:26] VITALS: BP 157/79
[2025-04-28 15:56] VITALS: BP 160/69
== END 2025-04-28 16:03 | disposition home or self-care (01) ==
LOC: EMR 11:07
PROVIDERS: EMERGENCY PHYSICIAN Emergency Medicine; FAMILY PHYSICIAN Family Medicine
DX: R10.32 Left lower quadrant pain (principal); E03.9 Hypothyroidism, unspecified; J43.9 Emphysema, unspecified; K21.9 Gastro-esophageal reflux disease without esophagitis; Z86.73 Personal history of transient ischemic attack (TIA), and cerebral infarction without residual deficits; Z87.891 Personal history of nicotine dependence; Z90.710 Acquired absence of both cervix and uterus
CPT/HCPCS: 99284; 96374; 96375; 96361; 71260; 74177; 80053; 85025; 93005; Q9967

== ENCOUNTER → 2025-07-27 13:18 | Outpatient (REF) | payer MEDICARE, BC, SELFPAY | LOC: RAD 13:18 | PROVIDERS: ATTENDING PHYSICIAN Internal Medicine Gastroenterology; FAMILY PHYSICIAN Family Medicine | DX: R14.0 Abdominal distension (gaseous) (principal) | CPT/HCPCS: 74019 ==

== ENCOUNTER 2025-08-16 06:28 | Day surgery (SDC) | payer MEDICARE, BC, SELFPAY | END 2025-08-16 14:42 | disposition home or self-care (01) | LOC: GI 06:28 | PROVIDERS: ATTENDING PHYSICIAN Internal Medicine Gastroenterology | DX: R12 Heartburn (principal); R13.10 Dysphagia, unspecified; K44.9 Diaphragmatic hernia without obstruction or gangrene; K22.2 Esophageal obstruction | CPT/HCPCS: 43249 ==